=== PATIENT | female | born 1950 | race Caucasian/White ===

== ENCOUNTER 2016-12-07 12:42 | Observation (INO) ==
--- NOTE | 2016-12-07 12:57 | Emergency Department Note ---
Disposition Clinical Impression: Thrombocytopenia, Occult gastrointestinal hemorrhage, Hematuria Disposition: Admitted As Inpatient Condition: Good Referrals: NO,PCP [Primary Care Provider] - Forms: Work/School Release, ED Satisfaction Letter Time of Disposition: 17:04 Weakness HPI - General Chief complaint: ED General Medical Stated complaint: sore throat, ringing in ears, weakness, Time Seen by Provider: 12/07/16 12:50 Source: patient Mode of arrival: ambulatory Limitations: no limitations Nursing Notes Reviewed: Yes Vital Signs Reviewed: Yes - History of Present Illness HPI Narrative: 66-year-old white female who presents by squad with weakness. She has not felt well for several weeks. On November 20 she was seen at urgent care and put on amoxicillin for sore throat. She was seen in urgent care again yesterday and put on an antibiotic for a sore throat. She complained of weakness at that time. They did note that she had black stool, but she states she believes is due to her vitamins with iron. She has some ringing in her ears at times. She has some numbness on the bottoms of her feet. She has a minimal cough. No chest pain. No abdominal pain. No nausea or vomiting. She did urinate frequently last night, but no pain with urination. She does take Bumex intermittently. Pt Subjective Complaint: generalized weakness/fatigue Onset (ago): week(s) Duration: constant Location: generalized Migration: none Pain Severity: none Pain Scale: 0 Improves with: none Worsens with: none Associated symptoms: Reports: dark stools. Denies: fever/chills, nausea/ vomiting, rash, shortness of breath - Related Data Home Medications Medication Instructions Recorded Confirmed Bumetanide [Bumex] 1 mg PO DAILY 05/04/16 12/07/16 Carvedilol [Coreg] 12.5 mg PO 12/07/16 Previous Rx's Medication Instructions Recorded OxyCODONE/APAP 7.5/325 [Percocet 1 each PO Q4HR PRN #30 tablet 05/05/16 7.5/325 MG] Acetaminophen [Tylenol] 325 mg PO Q6HR PRN #10 tablet 12/06/16 Cefdinir [Omnicef] 300 mg PO BID #20 capsule 12/06/16 Allergies Allergy/AdvReac Type Severity Reaction Status Date / Time codeine Allergy Numbness Verified 12/07/16 12:45 Sulfa (Sulfonamide Allergy Hives Verified 12/07/16 12:45 Antibiotics) All systems ED: reviewed and negative except as stated. Constitutional: Denies: fever, chills Eyes: Denies: eye pain, eye discharge, vision change ENT ED: Reports: throat pain, other (Intermittent ringing in ears). Denies: ear pain, congestion Cardiovascular: Denies: chest pain, palpitations Respiratory: Reports: cough (Minimal). Denies: dyspnea, wheezes, sputum production Gastrointestinal: Denies: abdominal pain, nausea, vomiting, diarrhea Genitourinary: Reports: frequency. Denies: urgency, dysuria, hematuria Musculoskeletal: Denies: back pain Neurological: Reports: weakness, paresthesias (Monos of the). Denies: headache , numbness, vertigo Past Medical History - Past Medical History Medical history: Reports: CHF, hypertension Surgical history: Reports: appendectomy, cholecystectomy, herniorrhaphy, hysterectomy, other Psychiatric history: Reports: anxiety [employer] history: Reports: no [employer] history - Social History Smoking Status: Never smoker Smokeless Tobacco Status: No Alcohol use: Reports: occasionally Drug use: Reports: none Physical Exam - General Limitations: no limitations General appearance: alert, in no apparent distress, obese (Moderate) - Head Head exam: atraumatic, normocephalic - Eye Eye exam: Present: PERRL, EOMI. Absent: scleral icterus, conjunctival injection - ENT ENT exam: normal oropharynx, mucous membranes moist, TM's normal bilaterally - Neck Neck exam: Present: normal inspection, full ROM, trachea midline. Absent: tenderness, lymphadenopathy, thyromegaly - Chest Chest inspection: Present: normal inspection, symmetric chest wall rise - Respiratory Respiratory exam: Present: normal lung sounds bilaterally. Absent: respiratory distress, wheezes - Cardiovascular Cardiovascular exam: Present: regular rate, normal rhythm, normal heart sounds - Abdominal Exam Abdominal exam: Present: soft, Non-Tender, normal bowel sounds. Absent: organomegaly, mass - Rectal Exam Rectal exam: Present: normal inspection, normal rectal tone, hemorrhoids, other (Medium brown stool. No masses. Sent to lab for Hemoccult testing.) - Extremities Exam Extremities exam: Present: normal inspection, full ROM, normal capillary refill , other (Intact dorsalis pedis and posterior tibial pulses. There are no skin changes on the lower extremities. Sensation is intact to touch.). Absent: tenderness, calf tenderness - Back Exam Back exam: Absent: CVA tenderness (R), CVA tenderness (L) - Neurological Exam Neurological exam: Present: alert, oriented X3, CN II-XII intact. Absent: motor sensory deficit - Psychiatric Psychiatric exam: Present: normal affect, normal mood - Skin Skin exam: Present: warm, dry, intact, normal color. Absent: rash, cyanosis, diaphoresis, pallor Course - Reevaluation(s) Reevaluation #1: Workup and results discussed with the patient. Workup and results discussed with Dr. Melvin. He will admit to an observation bed for repeat labs and further workup as indicated. Time: 17:03 Vital Signs Temperature 98.9 F 12/07/16 12:48 Pulse Rate 81 12/07/16 12:48 Respiratory Rate 18 12/07/16 12:48 Blood Pressure 139/84 12/07/16 12:48 O2 Sat by Pulse Oximetry 97 12/07/16 12:48 Temperature 98.9 F 12/07/16 12:49 Pulse Rate 83 12/07/16 16:59 Respiratory Rate 18 12/07/16 16:59 Blood Pressure 116/72 12/07/16 16:59 O2 Sat by Pulse Oximetry 96 12/07/16 16:59 Oxygen Delivery Oxygen Delivery Room Air Weakness - MDM Narrative Medical decision making narrative: Differential includes but is not limited to dehydration, hypoglycemia, hyperglycemia, myocardial infarction, urinary tract action, sepsis, hypothyroidism, hyperthyroidism, hyponatremia, hypernatremia - Lab Data Lab results reviewed: Yes I reviewed the patient's lab results. Result diagrams: 12/07/16 13:12 12/07/16 13:12 Lab Results 12/07/16 12/07/16 12/07/16 Range/Units 13:12 13:12 13:12 WBC 5.3 (4.3-11.1) K/mcL RBC 3.34 L (3.82-4.97) M/mcL Hgb 11.3 L (11.5-15.4) g/dL Hct 32.8 L (35.3-44.9) % MCV 98.2 (83.0-100.0) fL MCH 33.8 H (28.0-33.3) pg MCHC 34.5 (31.6-35.5) g/dL RDW 14.7 H (11.5-14.5) % Plt Count 25 L* (140-400) K/mcL MPV 12.7 H (9.4-12.4) fL Immature Gran % 0.6 (0-4) % Seg Neutrophils % 76.0 % Lymphocytes % 10.1 % Monocytes % 12.7 % Eosinophils % 0.4 % Basophils % 0.2 % Neutrophils # 4.0 (1.6-8.9) K/mcL Lymphocytes # 0.5 L (0.6-4.6) K/mcL Monocytes # 0.7 (0.0-1.3) K/mcL Eosinophils # 0.0 (0.0-0.6) K/mcL Basophils # 0.0 (0.0-0.2) K/mcL Platelet Estimate Decreased L (Normal) Sodium 139 (136-145) mEq/L Potassium 3.5 (3.5-4.5) mEq/L Chloride 107 (98-109) mEq/L Carbon Dioxide 22 (19-29) mEq/L BUN 13 (7-20) mg/dL Creatinine 0.72 (0.57-1.11) mg/dL Est GFR ( Amer) > 60 (> 60) Est GFR (Non-Af Amer) > 60 (> 60) BUN/Creatinine Ratio 18 (6-26) Glucose 109 H (70-99) mg/dL Calculated Osmolality 289 (280-300) Calcium 7.5 L (8.6-10.8) mg/dL Total Bilirubin 0.9 (0.2-1.2) mg/dL AST 65 H (5-34) Units/L ALT 48 (0-55) Units/L Alkaline Phosphatase 232 H (38-126) Units/L Troponin I 0.00 (0-0.03) ng/mL Serum Total Protein 4.7 L (6.0-8.3) g/dL Albumin 2.0 L (3.5-5.0) g/dL Globulin 2.7 (2.4-3.5) g/dL Albumin/Globulin Ratio 0.7 L (1.1-2.2) TSH 0.609 (0.350-4.840) mcIU/mL Urine Color (Yellow) Urine Clarity (Clear) Urine pH (5.0-8.0) pH Units Ur Specific [place] (1.010-1.025) Urine Protein (Neg-Trace) mg/dL Urine Glucose (UA) (Normal) mg/dL Urine Ketones (Negative) mg/dL Urine Blood (Negative) Urine Nitrite (Negative) Urine Bilirubin (Negative) Urine Urobilinogen (Normal) mg/dL Ur Leukocyte Esterase (Negative) Urine Microscopic RBC (0-3) per hpf Urine Microscopic WBC Amorphous Sediment (Few) Ur Culture Indicated? (NO) Stool Occult Blood (Negative) 12/07/16 12/07/16 Range/Units 13:53 15:20 WBC (4.3-11.1) K/mcL RBC (3.82-4.97) M/mcL Hgb (11.5-15.4) g/dL Hct (35.3-44.9) % MCV (83.0-100.0) fL MCH (28.0-33.3) pg MCHC (31.6-35.5) g/dL RDW (11.5-14.5) % Plt Count (140-400) K/mcL MPV (9.4-12.4) fL Immature Gran % (0-4) % Seg Neutrophils % % Lymphocytes % % Monocytes % % Eosinophils % % Basophils % % Neutrophils # (1.6-8.9) K/mcL Lymphocytes # (0.6-4.6) K/mcL Monocytes # (0.0-1.3) K/mcL Eosinophils # (0.0-0.6) K/mcL Basophils # (0.0-0.2) K/mcL Platelet Estimate (Normal) Sodium (136-145) mEq/L Potassium (3.5-4.5) mEq/L Chloride (98-109) mEq/L Carbon Dioxide (19-29) mEq/L BUN (7-20) mg/dL Creatinine (0.57-1.11) mg/dL Est GFR ( Amer) (> 60) Est GFR (Non-Af Amer) (> 60) BUN/Creatinine Ratio (6-26) Glucose (70-99) mg/dL Calculated Osmolality (280-300) Calcium (8.6-10.8) mg/dL Total Bilirubin (0.2-1.2) mg/dL AST (5-34) Units/L ALT (0-55) Units/L Alkaline Phosphatase (38-126) Units/L Troponin I (0-0.03) ng/mL Serum Total Protein (6.0-8.3) g/dL Albumin (3.5-5.0) g/dL Globulin (2.4-3.5) g/dL Albumin/Globulin Ratio (1.1-2.2) TSH (0.350-4.840) mcIU/mL Urine Color Yellow (Yellow) Urine Clarity Clear (Clear) Urine pH 6.0 (5.0-8.0) pH Units Ur Specific [place] 1.010 (1.010-1.025) Urine Protein 100 H (Neg-Trace) mg/dL Urine Glucose (UA) Normal (Normal) mg/dL Urine Ketones Negative (Negative) mg/dL Urine Blood Moderate H (Negative) Urine Nitrite Negative (Negative) Urine Bilirubin Negative (Negative) Urine Urobilinogen Normal (Normal) mg/dL Ur Leukocyte Esterase Small H (Negative) Urine Microscopic RBC 5-15 H (0-3) per hpf Urine Microscopic WBC Test Not Performed Amorphous Sediment Moderate H (Few) Ur Culture Indicated? YES A (NO) Stool Occult Blood Positive A (Negative) - Radiology Data Radiology results reviewed: Yes I reviewed the patient's radiology results. ITS Impressions Chest X-Ray 12/07/16 12:53 IMPRESSION: No acute process. D/ / Drake Rowe MD / Drake Rowe MD Interpreting Provider: Drake Rowe MD Head CT 12/07/16 13:57 IMPRESSION: No acute intracranial abnormality. Age related changes including chronic small vessel ischemic disease and cerebral atrophy. D/ / 12/07/2016 14:52:13 Nikkie Delacruz MD / eareldon Interpreting Provider: Nikkie Delacruz MD - EKG Data EKG attestation: Yes I reviewed and interpreted this EKG. EKG results narrative: On his rhythm, rate of 89, left axis deviation, low QRS voltage, poor R wave progression, age undetermined anterior infarct. Nonspecific ST-T changes. Rhythm strip shows sinus rhythm with rate of 89, AL interval 183 ms, QRS 101 ms with no other ectopy as interpreted by me. This is compared to a tracing dated 05/03/16, no significant change.
[2016-12-07 13:24] LABS: Basophils % 0.2 %; Eosinophils % 0.4 %; Hematocrit 32.8 % (35.3-44.9); Hemoglobin 11.3 g/dL (11.5-15.4); Immature Granulocytes % 0.6 % (0-4); Lymphocytes # 0.5 K/mcL (0.6-4.6); Lymphocytes % 10.1 %; Mean Corpuscular HGB Conc 34.5 g/dL (31.6-35.5); Mean Corpuscular Hemoglobin 33.8 pg (28.0-33.3); Mean Corpuscular Volume 98.2 fL (83.0-100.0); Mean Platelet Volume 12.7 fL (9.4-12.4); Monocytes # 0.7 K/mcL (0.0-1.3); Monocytes % 12.7 %; Red Blood Count 3.34 M/mcL (3.82-4.97); Red Cell Distribution Width 14.7 % (11.5-14.5)
[2016-12-07 13:26] LABS: Platelet Count 25 K/mcL (140-400)
[2016-12-07 13:36] LABS: Alanine Aminotransferase 48 Units/L (0-55); Albumin/Globulin Ratio 0.7 (1.1-2.2); Alkaline Phosphatase 232 Units/L (38-126); Aspartate Amino Transferase 65 Units/L (5-34); BUN/Creatinine Ratio 18 (6-26); Bilirubin,Total 0.9 mg/dL (0.2-1.2); Blood Urea Nitrogen 13 mg/dL (7-20); Calcium 7.5 mg/dL (8.6-10.8); Carbon Dioxide 22 mEq/L (19-29); Chloride 107 mEq/L (98-109); Globulin 2.7 g/dL (2.4-3.5); Glucose 109 mg/dL (70-99); Osmolality,Calculated 289 (280-300); Potassium 3.5 mEq/L (3.5-4.5); Sodium 139 mEq/L (136-145); Total Protein 4.7 g/dL (6.0-8.3); eGFR For African Americans > 60 (> 60); eGFR For Non-African Americans > 60 (> 60)
[2016-12-07 13:42] LABS: Platelet Estimate Decreased (Normal)
[2016-12-07 13:56] LABS: Thyroid Stimulating Hormone 0.609 mcIU/mL (0.350-4.840)
[2016-12-07 15:17] LABS: Bilirubin,Urine Negative (Negative); Blood,Urine Moderate (Negative); Clarity,Urine Clear (Clear); Color,Urine Yellow (Yellow); Glucose,Urine (UA) Normal (Normal); Ketones,Urine Negative (Negative); Leukocyte Esterase,Urine Small (Negative); Nitrite,Urine Negative (Negative); Protein,Urine 100 mg/dL (Neg-Trace); Urobilinogen,Urine Normal (Normal)
[2016-12-07 15:29] LABS: Amorphous Sediment,Urine Moderate (Few)
[2016-12-07] MEDS ORDERED: Naloxone 0.4 MG/ML INJ IVP PRN (18:20)
[2016-12-07] MEDS ORDERED: Acetaminophen 325 MG TABLET PO PRN (18:20)
[2016-12-07] MEDS: *HR* OxyCODONE/APAP 7.5/325 TABLET PO PRN (21:06)
[2016-12-08] MEDS: *HR* OxyCODONE/APAP 7.5/325 TABLET PO PRN ×4 (01:38→20:25)
[2016-12-08 05:56] LABS: Basophils % 0.2 %; Eosinophils % 0.5 %; Hematocrit 30.9 % (35.3-44.9); Hemoglobin 10.7 g/dL (11.5-15.4); Immature Granulocytes % 0.5 % (0-4); Lymphocytes # 0.7 K/mcL (0.6-4.6); Lymphocytes % 15.4 %; Mean Corpuscular HGB Conc 34.6 g/dL (31.6-35.5); Mean Corpuscular Hemoglobin 34.2 pg (28.0-33.3); Mean Corpuscular Volume 98.7 fL (83.0-100.0); Mean Platelet Volume 12.5 fL (9.4-12.4); Monocytes # 0.8 K/mcL (0.0-1.3); Monocytes % 17.4 %; Neutrophils # 2.9 K/mcL (1.6-8.9); Red Blood Count 3.13 M/mcL (3.82-4.97)
[2016-12-08 06:07] LABS: Platelet Count 26 K/mcL (140-400)
[2016-12-08 06:56] LABS: Platelet Estimate Marked Decrease (Normal)
--- NOTE | 2016-12-08 11:44 | Internal Med History&Physical ---
Date of Encounter: 12/08/16 Time of Encounter: 11:00 Assessment and Plan (1) Thrombocytopenia Current visit: Yes Status: Acute Workup has been ordered. No evidence of bleeding at this time. (2) Anemia Current visit: No Status: Acute Workup has been ordered. Qualifiers: Anemia type: iron deficiency Iron deficiency anemia type: unspecified iron deficiency Qualified Code(s): D50.9 - Iron deficiency anemia, unspecified (3) Vitamin D deficiency Current visit: No Status: Acute Vitamin D level was 5 on 03/20/2016. We will recheck in a.m. (4) Weakness Current visit: No Status: Acute Will order PT and OT evaluation Internal Medicine - H&P: HPI Chief complaint: Sore throat and weakness Admitted From: Home Plans for Post Hospital Care: Home History of present illness: Ms. Lopez is a 66 year old female who came to the emergency room stating she had sore throat and weakness. She reports the sore throat has been present for approximately 10 weeks but her leg weakness has been increasing the past few days. She went to a local urgent care 11/20/2016 and was given amoxicillin. She returned to urgent care 12/06/2016 and received Cefdinir. She was evaluated in emergency room and found to have marked thrombocytopenia with platelet count 25,000. She was admitted to [facility] floor for ongoing care needs. Review of available labs show platelet count at 166 K on 03/27/2016. During hospitalization at [facility] April 2016 her platelet count was 94,000. Available lab records show no platelet count done since April 2016. She had an episode of dark stools last week but admits taking 4 iron pills at one time the previous day because she felt weak. She has not noticed melena or hematochezia. She has not noticed any unusual bleeding or petechiae etc. She has not had any change in her medications or used any unusual OTC medications recently. Her last NSAID use was an OTC Aleve approximate one week ago. She reports taking 5 pills in the proceeding week before that. She has a history of anemia with anemia testing 03/20/2016 showing iron deficiency. She denies internal malignancies. Past Med Surg Social Fam HX - Past Medical History Medical history: CHF, hypertension Psychiatric history: anxiety - Past Surgical History Surgical History: appendectomy, cholecystectomy, herniorrhaphy, hysterectomy, other - Social History Smoking Status: Never smoker Smokeless Tobacco Status: No Alcohol use: occasionally Drug use: none - Family History Mother Name: Caritone Family Member Ethnicity: Non- Living Status: Age at : 90 Hx Family Cardiac Disorders: No Hx Family Respiratory Disorders: No Hx Family Cancer: No Hx Family GI Disorders: No Hx Family Genitourinary Disorders: No Hx Family Endocrine Disorder: No Hx Family Musculoskeletal Disorders: No Hx Family Neuromuscular Disorders: No Hx Family Neurologic Disorders: No Hx Family HEENT Disorders: No Hx Family Autoimmune Disorders: No Hx Family Reproductive Disorders: No Hx Family Psychosocial Disorders: No Hx Family Medical Disorders: No Internal Medicine - H&P: Meds Bumetanide [Bumex] 1 mg PO DAILY 05/04/16 [History] OxyCODONE/APAP 7.5/325 [Percocet 7.5/325 MG] 1 each PO Q4HR PRN #30 tablet 05/05 [Rx] Acetaminophen [Tylenol] 325 mg PO Q6HR PRN #10 tablet 12/06/16 [Rx] Cefdinir [Omnicef] 300 mg PO BID #20 capsule 12/06/16 [Rx] Carvedilol [Coreg] 12.5 mg PO 12/07/16 [History] Allergies codeine Allergy (Verified 12/07/16 12:45) Numbness Sulfa (Sulfonamide Antibiotics) Allergy (Verified 12/07/16 12:45) Hives All Systems PM: A 10-system review of systems was performed and is negative for pertinent findings except as documented above in the HPI. Review of systems: Gen.: Her weight has been stable since the February 2016 [facility] hospitalization Cardiovascular: She has a history of hypertension. She claims she had an [facility] in the past but was unaware of the time it happened. She was told about it later based on EKG findings. She has a diagnosis of CHF but does not recall results of the most recent echo of 2009. She claims she had a heart cath 2009 at [facility] which was unremarkable. She has had ablation procedure for atrial fibrillation. She denies DVT or pulmonary embolus. Respiratory: She smoked from age [age] up to 1 pack per day. She denies known chronic lung disease and has not been tested for sleep apnea GI: She has had cholecystectomy. She has GERD. She had gastric bypass surgery 30 years ago for morbid obesity. She was diagnosed Crohn's disease approximately 25 years ago. Her last colonoscopy was approximately 2012 and she reports was unremarkable. She states she has chronic diarrhea. Denies disorders of her liver or exocrine pancreas. : She has occasional hematuria but denies other kidney or bladder disorders Neurologic: She denies large distribution strokes or seizures Endocrine: She denies diabetes thyroid disease or hyperlipidemia Hematology/oncology: As per history of present illness Psychiatric: She has anxiety and depression denies other mental health issues Musk skeletal: She has DJD but no known gout or osteoporosis. - Constitutional Vitals: Temp Pulse Resp BP Pulse Ox 98.9 F 84 16 120/69 96 12/08/16 10:49 12/08/16 10:49 12/08/16 10:49 12/08/16 10:49 12/08/16 10:49 Exam: Gen.: She is a well developed well-nourished female who appears in no severe distress at present time HEENT: Head is atraumatic and normocephalic. Eyes: EOMI. There is no scleral icterus. Mouth: Mucosa is moist. Neck: Supple and nontender. There is no thyromegaly or adenopathy noted. Heart: Regular without murmurs gallops or ectopics. Lungs: No wheezes or crackles are heard. Abdomen: Soft and nontender. No masses or guarding are noted. Extremities: There is no cyanosis edema or clubbing noted. Dorsalis pedis and posttibial pulses are 1-2 over 2 bilaterally. Neurologic: Mental status: She is talkative and a good historian. Cranial nerves: Smile is symmetric. Forehead wrinkles bilaterally. Tongue protrudes midline. EOMI. Motor: There is no pronator drift. Cerebellar: Finger to nose is intact bilaterally. Skin: Warm and dry. No unusual bruising or petechiae are seen. Internal Med - H&P Results - Labs CBC & Chem 7: 12/08/16 05:25 12/07/16 13:12 Labs: Short CBC 12/08/16 Range/Units 05:25 WBC 4.4 (4.3-11.1) K/mcL Hgb 10.7 L (11.5-15.4) g/dL Hct 30.9 L (35.3-44.9) % Plt Count 26 L* (140-400) K/mcL Neutrophils # 2.9 (1.6-8.9) K/mcL - VTE Reasons for not Prescribing Prophylaxis: Medical contraindication
[2016-12-09] MEDS: *HR* OxyCODONE/APAP 7.5/325 TABLET PO PRN ×5 (02:00→22:42)
[2016-12-09 06:45] LABS: Basophils % 0.3 %; Hematocrit 29.3 % (35.3-44.9); Hemoglobin 9.8 g/dL (11.5-15.4); Immature Granulocytes % 0.7 % (0-4); Lymphocytes # 0.8 K/mcL (0.6-4.6); Lymphocytes % 25.8 %; Mean Corpuscular HGB Conc 33.4 g/dL (31.6-35.5); Mean Corpuscular Hemoglobin 33.8 pg (28.0-33.3); Mean Platelet Volume 13.7 fL (9.4-12.4); Monocytes # 0.7 K/mcL (0.0-1.3); Monocytes % 23.1 %; Neutrophils # 1.5 K/mcL (1.6-8.9); Nucleated Red Blood Cells 0.7 /100 WBC (0); Red Cell Distribution Width 15.3 % (11.5-14.5); Segmented Neutrophils % 49.1 %
[2016-12-09 06:59] LABS: Platelet Count 30 K/mcL (140-400)
--- NOTE | 2016-12-09 09:05 | Electrocardiograph Report ---
[address] [address] Test Date: 2016-12-07 Pat Name: Ana Lopez Department: [id number] Room: [facility] Gender: F Display Decorator: [id number] : 1950 Requested By: Macario Carrera Order Number: [id number] Reading MD: Tr Powers MD Measurements Intervals [place] Rate: 89 P: 70 [place]: 183 QRS: -53 QRSD: 101 T: 3 QT: 374 QTc: 421 Interpretive Statements SINUS RHYTHM MARKED LEFT AXIS DEVIATION LOW QRS VOLTAGE IN PRECORDIAL LEADS Poor R wave progression Electronically Signed On 12-09-2016 9:04:21 EDT by Tr Powers MD
[2016-12-09 09:49] LABS: % Iron Saturation 28 % (15-50); Iron 39 mcg/dL (50-170); Transferrin 99 mg/dL (180-382)
[2016-12-09 10:26] LABS: Ferritin 205 ng/ml (5-204)
[2016-12-09 10:39] LABS: Platelet Estimate Marked Decrease (Normal)
[2016-12-09 10:44] LABS: Folate 13.7 ng/mL (7.0-31.4)
--- NOTE | 2016-12-09 15:35 | Internal Med Progress Note ---
Date of Encounter: 12/09/16 Time of Encounter: 15:25 - Assessment and plan (1) Thrombocytopenia Current Visit: Yes Status: Acute Assessment and plan: December 08. Slightly improved. Workup has been initiated. We will recheck labs in a.m. (2) Anemia Current Visit: No Status: Acute Assessment and plan: December 08. Hemoglobin has decreased to 9.8 today. Anemia testing showed B12 deficiency. We will give IM B12 injection. Recheck labs in a.m. Qualifiers: Anemia type: iron deficiency Iron deficiency anemia type: unspecified iron deficiency Qualified Code(s): D50.9 - Iron deficiency anemia, unspecified (3) Vitamin D deficiency Current Visit: No Status: Acute Assessment and plan: December 08. Vitamin D level significantly low at 4. We will give supplemental vitamin D (4) Weakness Current Visit: No Status: Acute Assessment and plan: December 08. Continue PT and OT. Anticipate discharge home tomorrow. (5) Leukopenia Current Visit: Yes Status: Acute Assessment and plan: December 08. WBC has decreased to 3.0. There is no left shift at this time. We will recheck in a.m. Qualifiers: Leukopenia type: unspecified Qualified Code(s): D72.819 - Decreased white blood cell count, unspecified - Subjective Interval history: December 09. She has no new complaints and states she feels slightly better but not back to her baseline. She does not feel stable for discharge home. - Constitutional Vitals: Temp Pulse Resp BP Pulse Ox 98.6 F 78 18 153/88 97 12/09/16 10:51 12/09/16 15:14 12/09/16 15:14 12/09/16 15:14 12/09/16 15:14 Exam: She is sitting in a chair at bedside and appears to be resting comfortably. Her affect is bright and cheerful. I reviewed her medications and lab results. Internal Medicine: Result - Labs CBC & Chem 7: 12/09/16 05:45 12/07/16 13:12 Labs: Short CBC 12/09/16 Range/Units 05:45 WBC 3.0 L (4.3-11.1) K/mcL Hgb 9.8 L (11.5-15.4) g/dL Hct 29.3 L (35.3-44.9) % Plt Count 30 L* (140-400) K/mcL Neutrophils # 1.5 L (1.6-8.9) K/mcL - VTE Reasons for not Prescribing Prophylaxis: Medical contraindication Consult Discharge Plan - Plan Referrals: NO,PCP [Primary Care Provider] - 1 week
[2016-12-09] MEDS ORDERED: Cyanocobalamin (B-12) 1,000 MCG/ML VIAL IM ONE (15:40)
[2016-12-09] MEDS ORDERED: Cholecalciferol (D-3) 1,000 UNIT TABLET PO ONE ×2 (16:30→18:30)
[2016-12-10] MEDS: *HR* OxyCODONE/APAP 7.5/325 TABLET PO PRN ×2 (02:33→06:46)
[2016-12-10 06:01] LABS: Basophils % 0.6 %; Eosinophils % 1.2 %; Hematocrit 30.4 % (35.3-44.9); Immature Granulocytes % 0.6 % (0-4); Lymphocytes # 1.2 K/mcL (0.6-4.6); Lymphocytes % 35.9 %; Mean Corpuscular HGB Conc 32.9 g/dL (31.6-35.5); Mean Corpuscular Hemoglobin 33.4 pg (28.0-33.3); Mean Corpuscular Volume 101.7 fL (83.0-100.0); Mean Platelet Volume 11.7 fL (9.4-12.4); Monocytes # 0.8 K/mcL (0.0-1.3); Monocytes % 23.5 %; Neutrophils # 1.2 K/mcL (1.6-8.9); Red Blood Count 2.99 M/mcL (3.82-4.97); Segmented Neutrophils % 38.2 %
[2016-12-10 06:04] LABS: Platelet Count 46 K/mcL (140-400)
[2016-12-10 06:13] VITALS: BP 130/83
[2016-12-10 06:22] LABS: Alanine Aminotransferase 30 Units/L (0-55); Albumin/Globulin Ratio 0.8 (1.1-2.2); Alkaline Phosphatase 165 Units/L (38-126); Aspartate Amino Transferase 22 Units/L (5-34); BUN/Creatinine Ratio 15 (6-26); Bilirubin,Total 0.4 mg/dL (0.2-1.2); Blood Urea Nitrogen 10 mg/dL (7-20); Calcium 7.2 mg/dL (8.6-10.8); Carbon Dioxide 23 mEq/L (19-29); Chloride 112 mEq/L (98-109); Globulin 2.4 g/dL (2.4-3.5); Glucose 90 mg/dL (70-99); Magnesium 1.9 mg/dL (1.6-2.6); Osmolality,Calculated 293 (280-300); Potassium 3.6 mEq/L (3.5-4.5); Sodium 142 mEq/L (136-145); Total Protein 4.3 g/dL (6.0-8.3); eGFR For African Americans > 60 (> 60); eGFR For Non-African Americans > 60 (> 60)
[2016-12-10 06:23] LABS: Albumin 1.9 g/dL (3.5-5.0)
[2016-12-10 06:55] LABS: Platelet Estimate Marked Decrease (Normal)
[2016-12-10 06:59] LABS: Hypochromasia Present (Not Present)
[2016-12-10 07:00] LABS: Anisocytosis 1+ (Not Present); Macrocytosis Present (Not Present)
--- NOTE | 2016-12-10 09:29 | Discharge Summary ---
Date of Encounter: 12/10/16 Time of Encounter: 09:10 - Discharge Diagnosis (1) Thrombocytopenia Priority: Primary Status: Acute (2) Anemia Priority: Secondary Status: Acute Qualifiers: Anemia type: iron deficiency Iron deficiency anemia type: unspecified iron deficiency Qualified Code(s): D50.9 - Iron deficiency anemia, unspecified (3) Vitamin D deficiency Priority: Secondary Status: Acute (4) Weakness Priority: Secondary Status: Acute (5) Leukopenia Priority: Secondary Status: Acute Qualifiers: Leukopenia type: unspecified Qualified Code(s): D72.819 - Decreased white blood cell count, unspecified - Discharge Medications Prescriptions: Alprazolam [Xanax 0.25 MG Tablet] 0.25 mg PO TID PRN #12 tablet PRN Reason: Anxiety Carvedilol 12.5 mg PO BID #60 tab Cholecalciferol (D-3) [Vitamin D] 5,000 unit PO DAILY #150 tablet Cyanocobalamin (B-12) [Vitamin B12] 1,000 mcg PO DAILY #30 tablet Tramadol HCl [Ultram] 50 mg PO QID PRN #20 tab PRN Reason: Pain TraZODone 100 mg PO HS PRN #30 tablet PRN Reason: Insomnia Home Medications: Acetaminophen [Tylenol] 325 mg PO Q6HR PRN #10 tablet 12/06/16 [Rx] Alprazolam [Xanax 0.25 MG Tablet] 0.25 mg PO TID PRN #12 tablet 12/10/16 [Rx] Carvedilol 12.5 mg PO BID #60 tab 12/10/16 [Rx] Cholecalciferol (D-3) [Vitamin D] 5,000 unit PO DAILY #150 tablet 12/10/16 [Rx] Cyanocobalamin (B-12) [Vitamin B12] 1,000 mcg PO DAILY #30 tablet 12/10/16 [Rx] TraZODone 100 mg PO HS PRN #30 tablet 12/10/16 [Rx] Tramadol HCl [Ultram] 50 mg PO QID PRN #20 tab 12/10/16 [Rx] Allergies/Adverse Reactions: Allergies codeine Allergy (Verified 12/07/16 12:45) Numbness Sulfa (Sulfonamide Antibiotics) Allergy (Verified 12/07/16 12:45) Hives Date of admission: 12/07/16 18:17 Primary care physician: PCP NO Consults: 12/08/16 12:02 Consult to Occupational Therapy [CONS] Routine Comment: Evaluate, develop and implement POC Consult to Physical Therapy [CONS] Routine Comment: Evaluate, develop and implement POC 12/08/16 20:35 Consult to Security Controls Assessor [CONS] Routine Reason for SW Consult: Discharge planning - Patient Status Disposition: Home Health Service Condition: Good Overall status at discharge: patient is progressing back to baseline - Discharge Instructions Follow Up With: NO,PCP [Primary Care Provider] - 1 week - Diet and Activity Activity: resume usual activities as tolerated Diet: advance to your usual diet Hospital course: Ms. Lopez is a 66 year old female who came to the emergency room stating she had sore throat and weakness. She reports the sore throat has been present for approximately 10 weeks but her leg weakness has been increasing the past few days. She went to a local urgent care 11/20/2016 and was given amoxicillin. She returned to urgent care 12/06/2016 and received Cefdinir. She was evaluated in emergency room and found to have marked thrombocytopenia with platelet count 25,000. She was admitted to [facility] for ongoing care needs. Initial orders were written by the emergency room physician. I saw her on December 08 and performed a history and physical. Workup for thrombocytopenia was ordered occluding MARTINEZ, antiphospholipid antibodies, CMV titers, EBV titers, platelet associated antibody, and hepatitis B and C screening. Most of these results are pending at time of discharge. Medications were adjusted and platelet count improved to 46,000 by the day of discharge. She initially had progressive leukopenia but WBC stabilized at 3.2 K on the day of discharge. Hemoglobin was stable at 10.0. Anemia testing showed B12 level 212, folate 13.7, iron 39, transferrin saturation 20%, and ferritin 205. She was started on supplemental B12 orally after a single 1000 g IM injection. She will continue supplemental oral B12 at discharge. Vitamin D level returned significantly decreased at 4. She will will be given 5000 international units vitamin D daily at discharge. She experienced significant anxiety as she discussed her home situation with her 's care needs etc. She will be given a small quantity of Xanax at discharge for prn use for anxiety. She complained of diffuse pain and will be given 20 tramadol pills for prn use. Her pain may lessen as her vitamin D level improves. On December 10 she was stable for discharge home. She will follow with a PCP in the [facility] in [place] within 1 week. - Time Spent with Patient Total time spent providing and/or coordinating discharge services: - Constitutional Vitals: Temp Pulse Resp BP Pulse Ox 98.5 F 76 18 130/83 98 12/10/16 06:12 12/10/16 06:12 12/10/16 06:12 12/10/16 06:12 12/10/16 06:12 - VTE Reasons for not Prescribing Prophylaxis: Medical contraindication
--- NOTE | 2016-12-10 09:38 | Physician Discharge Referral ---
Home Health/Hosp Referral Info Transfer to: Home Health Attending Provider: Olegario Provider in Charge Post Discharge: PCP - Diagnosis (1) Thrombocytopenia Priority: Primary Status: Acute (2) Anemia Priority: Secondary Status: Acute (3) Vitamin D deficiency Priority: Secondary Status: Acute (4) Weakness Priority: Secondary Status: Acute (5) Leukopenia Priority: Secondary Status: Acute - Respiratory Orders Smoking Cessation: Smoking cessation has been advised. For more information, call the [place] Tobacco Quit Line at 0-089-IKSJ-NOW. - Diet/Nutrition Diet/Nutrition Orders: Regular - Activity Activity Orders: Ambulate - Services Needed Following services are medically necessary services: Nursing, Home Health Aide, Physical Therapy, Occupational Therapy - Transfer Medications Prescriptions: Alprazolam [Xanax 0.25 MG Tablet] 0.25 mg PO TID PRN #12 tablet PRN Reason: Anxiety Carvedilol 12.5 mg PO BID #60 tab Cholecalciferol (D-3) [Vitamin D] 5,000 unit PO DAILY #150 tablet Cyanocobalamin (B-12) [Vitamin B12] 1,000 mcg PO DAILY #30 tablet Tramadol HCl [Ultram] 50 mg PO QID PRN #20 tab PRN Reason: Pain TraZODone 100 mg PO HS PRN #30 tablet PRN Reason: Insomnia Home Medications: Acetaminophen [Tylenol] 325 mg PO Q6HR PRN #10 tablet 12/06/16 [Rx] Alprazolam [Xanax 0.25 MG Tablet] 0.25 mg PO TID PRN #12 tablet 12/10/16 [Rx] Carvedilol 12.5 mg PO BID #60 tab 12/10/16 [Rx] Cholecalciferol (D-3) [Vitamin D] 5,000 unit PO DAILY #150 tablet 12/10/16 [Rx] Cyanocobalamin (B-12) [Vitamin B12] 1,000 mcg PO DAILY #30 tablet 12/10/16 [Rx] TraZODone 100 mg PO HS PRN #30 tablet 12/10/16 [Rx] Tramadol HCl [Ultram] 50 mg PO QID PRN #20 tab 12/10/16 [Rx] Allergies/Adverse Reactions: Allergies codeine Allergy (Verified 12/07/16 12:45) Numbness Sulfa (Sulfonamide Antibiotics) Allergy (Verified 12/07/16 12:45) Hives Certification: Further, I certify that my clinical findings support that this patient is homebound (i.e. absences from home require considerable and taxing effort and are for medical reasons or judaism services or infrequently or short duration when for other reasons) because: Homebound Reason: Patient requires assistance of a person or device to safely leave home (Exercise supervision in the home, medication oversight) Attestation: My signature below is to certify that this patient is under my care and that I, or nurse practitioner, or a physician's legislative assistant working with me, has a face-to -face encounter with this patient.
[2016-12-11 07:59] LABS: ANA IgG by ELISA NONE DETECTED (None Detected)
[2016-12-11 10:01] LABS: APTT (LE Anticoag) 43 sec (32-48); Diluted Russell Viper Venom 38 sec (33-44); PT (LE-Anticoag) 12.6 sec (12.0-15.5)
[2016-12-11 19:46] LABS: EBV Quant Copy/mL <390 cpy/mL; Epstein Barr Virus Qnt Source PLASMA
[2016-12-12 07:18] LABS: Cytomegalovirus DNA (PCR) NOT DETECTED
[2016-12-12 07:19] LABS: EBV Quant Interpretation NOT DETECTED (Not Detected); EBV Quant Log <2.6 log
== END 2016-12-10 12:30 | disposition home health service (06) ==
LOC: INPPIK 12:42 → EMEROOPIK 12:42 → INPPIK 18:25
PROVIDERS: ADMIT Internal Medicine; ATTEND Internal Medicine

== ENCOUNTER 2017-01-06 14:08 | Observation (INO) ==
--- NOTE | 2017-01-06 14:19 | Emergency Department Note ---
Disposition Clinical Impression: Gastroenteritis, Weakness, Dehydration Disposition: Transfer Short-Term Hosp Condition: Good Referrals: NO,PCP [Primary Care Provider] - Forms: ED Satisfaction Letter General Adult HPI - General Chief complaint: ED Shortness of Breath/Dyspnea Stated complaint: Nausea, vomitng, sob Time Seen by Provider: 01/06/17 14:15 Source: patient, EMS Mode of arrival: EMS Limitations: no limitations Nursing Notes Reviewed: Yes Vital Signs Reviewed: Yes - History of Present Illness HPI Narrative: Patient reports intractable nausea and vomiting over the last 24 hours. She states that she has thrown up about 30 times to where she is just bringing up foam. She denies any blood or bile in her emesis. She states this threw her into a panic attack prior to arrival prompting her to call the squad. In route she has received some Zofran and states her nausea is quite a bit better. She has relates a feeling of abdominal pain like she is going to have some diarrhea but her bowels have been normal for her. She states she frequently will have loose stool ever since she had bariatric surgery years ago. She reports some chills but no fevers. She denies chest pain or cough but has had some shortness of breath. She has had almost no oral intake for 24 hours and states she is getting weak and dizzy with standing. She denies any concern of foodborne illness or any definite ill exposures. She states she has been around a lot of hospitals though recently with family members. She herself advises that she had a urinary tract infection for which she has completed a recent course of antibiotics. Onset (ago): day(s) (1) Consistency: constant Improves with: nothing Worsens with: eating Associated symptoms: Reports: fever/chills, loss of appetite, malaise, nausea/ vomiting, shortness of breath, weakness. Denies: confusion, chest pain, cough, diaphoresis, headaches, rash, seizure, syncope Treatments Prior to Arrival: other (IV fluids, Zofran) - Related Data Previous Rx's Medication Instructions Recorded Acetaminophen [Tylenol] 325 mg PO Q6HR PRN #10 tablet 12/06/16 ALPRAZolam [Xanax 0.25 MG Tablet] 0.25 mg PO TID PRN #12 tablet 12/10/16 Carvedilol 12.5 mg PO BID #60 tab 12/10/16 Cholecalciferol (D-3) [Vitamin D] 5,000 unit PO DAILY #150 tablet 12/10/16 Cyanocobalamin (B-12) [Vitamin B12] 1,000 mcg PO DAILY #30 tablet 12/10/16 Tramadol HCl [Ultram] 50 mg PO QID PRN #20 tab 12/10/16 traZODone [TraZODone] 100 mg PO HS PRN #30 tablet 12/10/16 Ondansetron HCl [Zofran] 4 mg PO Q6HR PRN #8 tablet 12/26/16 Allergies Allergy/AdvReac Type Severity Reaction Status Date / Time codeine Allergy Numbness Verified 12/07/16 12:45 Sulfa (Sulfonamide Allergy Hives Verified 12/07/16 12:45 Antibiotics) All systems ED: reviewed and negative except as stated. Past Medical History - Past Medical History Attestation: Yes The following information was validated with the patient. 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 Absent: scleral icterus, conjunctival injection - ENT ENT exam: normal exam, normal oropharynx, mucous membranes moist - Neck Neck exam: Present: normal inspection, full ROM, trachea midline - Chest Chest inspection: Present: normal inspection, symmetric chest wall rise. Absent : tenderness - Respiratory Respiratory exam: Present: normal lung sounds bilaterally. Absent: respiratory distress, wheezes, prolonged expiratory phase - Cardiovascular Cardiovascular exam: Present: regular rate, normal rhythm, normal heart sounds. Absent: tachycardia - Abdominal Exam Abdominal exam: Present: soft, Non-Tender, normal bowel sounds. Absent: tenderness, distention, guarding, rebound, rigidity - Extremities Exam Extremities exam: Present: normal inspection, full ROM, normal capillary refill. Absent: tenderness, pedal edema, calf tenderness - Expanded Lower Extremity Exam Neurovascular/Tendon exam: Present: normal capillary refill. Absent: motor deficit, sensory deficit, tendon deficit Gait: not tested/not observed - Back Exam Back exam: Present: normal inspection, full ROM. Absent: tenderness, vertebral tenderness - Neurological Exam Neurological exam: Present: alert, oriented X3 - Psychiatric Psychiatric exam: Present: normal affect, anxious - Skin Skin exam: Present: warm, dry, intact, normal color. Absent: cyanosis, diaphoresis, pallor Course Course Narrative: 1520: With return of all lab tests, patient is continuing with nausea without vomiting. She has had diarrhea now while she has been in the department. This is without blood or mucus. I feel it will be prudent to have her observation and continued hydration. This will be discussed with Dr. Melvin for potential observation. 1525: Dr. Melvin is agreeable with continuation of IV fluids with inpatient observation. Vital Signs Temperature 98.6 F 01/06/17 14:14 Respiratory Rate 20 01/06/17 14:14 Blood Pressure 137/71 01/06/17 14:14 O2 Sat by Pulse Oximetry 98 01/06/17 14:14 Temperature 98.6 F 01/06/17 14:14 Respiratory Rate 20 01/06/17 14:14 Blood Pressure 137/71 01/06/17 14:14 O2 Sat by Pulse Oximetry 98 01/06/17 14:14 Oxygen Delivery Oxygen Delivery Room Air Medical Decision Making - Medical Records Medical records reviewed: Yes I reviewed the patient's medical records. - Lab Data Lab results reviewed: Yes I reviewed the patient's lab results. Result diagrams: 01/06/17 14:27 01/06/17 14:27 Lab Results 01/06/17 01/06/17 Range/Units 14:27 14:27 WBC 4.3 (4.3-11.1) K/mcL RBC 3.52 L (3.82-4.97) M/mcL Hgb 12.1 (11.5-15.4) g/dL Hct 35.3 (35.3-44.9) % MCV 100.3 H (83.0-100.0) fL MCH 34.4 H (28.0-33.3) pg MCHC 34.3 (31.6-35.5) g/dL RDW 12.7 (11.5-14.5) % Plt Count 152 (140-400) K/mcL MPV 10.4 (9.4-12.4) fL Immature Gran % 0.2 (0-4) % Seg Neutrophils % 62.5 % Lymphocytes % 27.6 % Monocytes % 9.0 % Eosinophils % 0.2 % Basophils % 0.5 % Neutrophils # 2.7 (1.6-8.9) K/mcL Lymphocytes # 1.2 (0.6-4.6) K/mcL Monocytes # 0.4 (0.0-1.3) K/mcL Eosinophils # 0.0 (0.0-0.6) K/mcL Basophils # 0.0 (0.0-0.2) K/mcL Sodium 140 (136-145) mEq/L Potassium 3.5 (3.5-4.5) mEq/L Chloride 104 (98-109) mEq/L Carbon Dioxide 21 (19-29) mEq/L BUN 15 (7-20) mg/dL Creatinine 0.66 (0.57-1.11) mg/dL Est GFR ( Amer) > 60 (> 60) Est GFR (Non-Af Amer) > 60 (> 60) BUN/Creatinine Ratio 23 (6-26) Glucose 111 H (70-99) mg/dL Calculated Osmolality 292 (280-300) Calcium 7.9 L (8.6-10.8) mg/dL Total Bilirubin 1.0 (0.2-1.2) mg/dL Direct Bilirubin 0.5 (0.0-0.5) mg/dL Indirect Bilirubin 0.5 (0.0-1.2) mg/dL AST 37 H (5-34) Units/L ALT 23 (0-55) Units/L Alkaline Phosphatase 154 H (38-126) Units/L Serum Total Protein 5.0 L (6.0-8.3) g/dL Albumin 2.5 L (3.5-5.0) g/dL Globulin 2.5 (2.4-3.5) g/dL Albumin/Globulin Ratio 1.0 L (1.1-2.2) Amylase 11 L (25-125) Units/L Lipase 17 (8-78) Units/L - EKG Data EKG #1 EKG attestation: Yes I reviewed and interpreted this EKG. EKG shows normal: sinus rhythm, intervals, QRS complexes, ST-T waves Rhythm: PVC's [place]/QRS: left axis deviation QRS morphology: poor R-wave progression Interpretation: no acute changes
[2017-01-06] MEDS ORDERED: 0.9 % Sodium Chloride 1,000 ML IVC SCH ×2 (14:30→16:26)
[2017-01-06 14:33] LABS: Basophils % 0.5 %; Eosinophils % 0.2 %; Hematocrit 35.3 % (35.3-44.9); Hemoglobin 12.1 g/dL (11.5-15.4); Immature Granulocytes % 0.2 % (0-4); Lymphocytes # 1.2 K/mcL (0.6-4.6); Lymphocytes % 27.6 %; Mean Corpuscular HGB Conc 34.3 g/dL (31.6-35.5); Mean Corpuscular Hemoglobin 34.4 pg (28.0-33.3); Mean Corpuscular Volume 100.3 fL (83.0-100.0); Mean Platelet Volume 10.4 fL (9.4-12.4); Monocytes # 0.4 K/mcL (0.0-1.3); Neutrophils # 2.7 K/mcL (1.6-8.9); Platelet Count 152 K/mcL (140-400); Red Blood Count 3.52 M/mcL (3.82-4.97); Red Cell Distribution Width 12.7 % (11.5-14.5); Segmented Neutrophils % 62.5 %
[2017-01-06 14:52] LABS: Alanine Aminotransferase 23 Units/L (0-55); Albumin 2.5 g/dL (3.5-5.0); Alkaline Phosphatase 154 Units/L (38-126); Amylase 11 Units/L (25-125); Aspartate Amino Transferase 37 Units/L (5-34); BUN/Creatinine Ratio 23 (6-26); Bilirubin,Direct 0.5 mg/dL (0.0-0.5); Bilirubin,Indirect 0.5 mg/dL (0.0-1.2); Blood Urea Nitrogen 15 mg/dL (7-20); Calcium 7.9 mg/dL (8.6-10.8); Carbon Dioxide 21 mEq/L (19-29); Chloride 104 mEq/L (98-109); Globulin 2.5 g/dL (2.4-3.5); Glucose 111 mg/dL (70-99); Lipase 17 Units/L (8-78); Osmolality,Calculated 292 (280-300); Potassium 3.5 mEq/L (3.5-4.5); Sodium 140 mEq/L (136-145); eGFR For African Americans > 60 (> 60); eGFR For Non-African Americans > 60 (> 60)
[2017-01-06] MEDS ORDERED: *HR* LORazepam 2 MG/ML VIAL IVP ONE (15:38)
--- NOTE | 2017-01-06 15:53 | Electrocardiograph Report ---
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
[2017-01-06] MEDS ORDERED: Naloxone 0.4 MG/ML INJ IVP PRN ×2 (16:26→17:42)
[2017-01-06] MEDS ORDERED: Ondansetron 4 MG/2 ML VIAL IVP PRN ×2 (16:26→17:42)
[2017-01-06] MEDS: 0.9 % Sodium Chloride 1,000 ML IVC SCH (18:26)
[2017-01-06] MEDS: *HR* OxyCODONE/APAP 5/325 TABLET PO PRN (21:24)
[2017-01-06] MEDS: *HR* LORazepam 1 MG TABLET PO PRN (23:47)
[2017-01-07] MEDS: 0.9 % Sodium Chloride 1,000 ML IVC SCH ×2 (06:03→09:17)
[2017-01-07] MEDS: *HR* OxyCODONE/APAP 5/325 TABLET PO PRN ×3 (06:03→19:19)
[2017-01-07] MEDS: *HR* LORazepam 1 MG TABLET PO PRN ×3 (09:14→23:07)
--- NOTE | 2017-01-07 10:56 | Internal Med History&Physical ---
Date of Encounter: 01/07/17 Time of Encounter: 10:20 Assessment and Plan (1) Gastroenteritis Current visit: Yes Status: Acute She was ordered IV fluids and prn anti-medics through emergency room. Advance diet as tolerated. (2) Vitamin D deficiency Current visit: No Status: Acute Continue supplemental vitamin D. (3) Anxiety Current visit: Yes Status: Acute Will continue Ativan prn as ordered through the emergency room. Internal Medicine - H&P: HPI Chief complaint: Vomiting Admitted From: Home Plans for Post Hospital Care: Home History of present illness: Ms. Lopez is a 66 year old female who came to emergency room stating she had onset of vomiting January 05. She reports over 20 episodes of vomiting without visible hematemesis. She developed lower abdominal pain the morning of January 06 which she attributes to the repeated vomiting. She also reports feeling chilled and having diarrhea. She reports she had a panic attack the morning of January 06. She came to emergency room and was admitted to [facility] floor for ongoing care needs. She states she feels improved at the present time and has not vomited for several hours. Her GI history is pertinent for cholecystectomy and GERD. She had GBS approximately 30 years ago for morbid obesity. She reports being diagnosed with Crohn's disease approximately 25 years ago. Her last colonoscopy was approximately 2012 which she states was unremarkable. She states she has chronic diarrhea. She denies disorders of her liver or exocrine pancreas. She was hospitalized at [facility] 1 month ago with diagnosis of anemia and thrombocytopenia. She states she did not fill all her prescriptions given at discharge and has not followed up with a PCP locally or at her previous physicians at [facility] since discharge. She states frequently she does not have money to buy her prescriptions. Past Med Surg Social Fam HX - Past Medical History Medical history: CHF, hypertension Psychiatric history: anxiety - Past Surgical History Surgical History: cholecystectomy, hysterectomy, bariatric surgery - Social History Smoking Status: Former smoker Smokeless Tobacco Status: No Alcohol use: occasionally Drug use: none - Family History Mother Family Member Ethnicity: Non- Living Status: Hx Family Cardiac Disorders: No Hx Family Respiratory Disorders: No Hx Family Cancer: No Hx Family GI Disorders: No Hx Family Endocrine Disorder: No Hx Family Neuromuscular Disorders: No Hx Family Neurologic Disorders: No Hx Family HEENT Disorders: No Hx Family Autoimmune Disorders: No Internal Medicine - H&P: Meds Acetaminophen [Tylenol] 325 mg PO Q6HR PRN #10 tablet 12/06/16 [Rx] ALPRAZolam [Xanax 0.25 MG Tablet] 0.25 mg PO TID PRN #12 tablet 12/10/16 [Rx] Carvedilol 12.5 mg PO BID #60 tab 12/10/16 [Rx] Cholecalciferol (D-3) [Vitamin D] 5,000 unit PO DAILY #150 tablet 12/10/16 [Rx] Cyanocobalamin (B-12) [Vitamin B12] 1,000 mcg PO DAILY #30 tablet 12/10/16 [Rx] Allergies codeine Allergy (Verified 12/07/16 12:45) Numbness Sulfa (Sulfonamide Antibiotics) Allergy (Verified 12/07/16 12:45) Hives All Systems PM: A 10-system review of systems was performed and is negative for pertinent findings except as documented above in the HPI. Review of systems: Gen.: Her weight has been stable since the February 2016 [facility] hospitalization at approximately 88 kg Cardiovascular: She has a history of hypertension. She claims she had an PA in the past but was unaware of the time it happened. She was told about it later based on EKG findings. She claims a diagnosis of CHF. The most recent echocardiogram 03/19/2016 showed LVEF of 65% with moderate diastolic dysfunction seen. There was no significant valvular abnormalities noted. She had an ascending aortic dilatation measuring 4.1 cm. She claims she had a heart cath 2010 at [facility] which was unremarkable. She has had ablation procedure for atrial fibrillation. She denies DVT or pulmonary embolus. Respiratory: She smoked from age [age] up to 1 pack per day. She denies known chronic lung disease and has not been tested for sleep apnea GI: As per history of present illness : She has occasional hematuria but denies other kidney or bladder disorders Neurologic: She denies large distribution strokes or seizures Endocrine: She denies diabetes thyroid disease or hyperlipidemia Hematology/oncology: At her hospitalization 12/08/2016 at [facility] she was found to have pancytopenia. This has corrected. She denies internal malignancies. Psychiatric: She has anxiety and depression denies other mental health issues Musk skeletal: She has DJD but no known gout or osteoporosis. She had very low vitamin D level found at last hospitalization and was placed on vitamin D supplementation. - Constitutional Vitals: Temp Pulse Resp BP Pulse Ox 98.8 F 81 16 139/81 98 01/07/17 06:33 01/07/17 06:33 01/07/17 06:33 01/07/17 06:33 01/07/17 06:33 Exam: Gen.: She is a well-developed and nourished female who appears in no severe distress at present time HEENT: Head is atraumatic and normocephalic. Eyes: EOMI. There is no scleral icterus. Mouth: Mucosa is moist. Neck: Supple and nontender. There is no thyromegaly or adenopathy noted. Heart: Regular without murmurs gallops or ectopics. Lungs: No wheezes or crackles are heard. Abdomen: Soft and nontender. No masses or guarding are noted. Extremities: There is no cyanosis edema or clubbing noted. Dorsalis pedis and posterior tibial pulses are trace palpable bilaterally. She has an ecchymosis measuring approximately 10 cm maximum diameter in her left lower anterior buck area. She has a shallow ulcer on the right lateral lower leg measuring 10-12 mm. Neurologic: Mental status: She is talkative and a good historian. Cranial nerves: Smile is symmetric. Forehead wrinkles bilaterally. Tongue protrudes midline. EOMI. Motor: There is no pronator drift. Cerebellar: Finger to nose is intact bilaterally. Skin: Warm and dry Internal Med - H&P Results - Labs CBC & Chem 7: 01/06/17 14:27 01/06/17 14:27 - VTE Documentation of Mechanical Device: Graduated compression elastic hosiery
[2017-01-07] MEDS ORDERED: Ondansetron ODT 4 MG TAB.RAPDIS SL PRN (11:11)
[2017-01-07] MEDS ORDERED: Acetaminophen 325 MG TABLET PO PRN (11:15)
[2017-01-07 13:01] LABS: Bilirubin,Urine Small (Negative); Blood,Urine Negative (Negative); Clarity,Urine Slightly Cloudy (Clear); Color,Urine Amber (Yellow); Glucose,Urine (UA) Normal (Normal); Ketones,Urine Negative (Negative); Leukocyte Esterase,Urine Negative (Negative); Nitrite,Urine Positive (Negative); Protein,Urine Trace mg/dL (Neg-Trace); Urobilinogen,Urine Normal (Normal)
[2017-01-07 13:41] LABS: RBC,Urine 0-3 per hpf (0-3)
[2017-01-07 13:42] LABS: Bacteria,Urine Moderate per hpf (None-Few); Mucus,Urine Few (Few); Squamous Epithelial Cell,Urine Few per lpf (None-Few)
[2017-01-07] MEDS ORDERED: traZODone 50 MG TABLET PO SCH (21:00)
[2017-01-08] MEDS: *HR* OxyCODONE/APAP 5/325 TABLET PO PRN ×2 (01:14→06:57)
[2017-01-08] MEDS: *HR* LORazepam 1 MG TABLET PO PRN (06:20)
[2017-01-08 06:41] VITALS: BP 134/83
--- NOTE | 2017-01-08 10:42 | Discharge Summary ---
Date of Encounter: 01/08/17 Time of Encounter: 10:30 - Discharge Diagnosis (1) Gastroenteritis Priority: Primary Status: Acute (2) Vitamin D deficiency Priority: Secondary Status: Acute (3) Anxiety Priority: Secondary Status: Chronic - Discharge Medications Prescriptions: ALPRAZolam [Xanax 0.25 MG Tablet] 0.25 mg PO TID PRN #15 tablet PRN Reason: Anxiety Home Medications: Acetaminophen [Tylenol] 325 mg PO Q6HR PRN #10 tablet 12/06/16 [Rx] Carvedilol 12.5 mg PO BID #60 tab 12/10/16 [Rx] Cholecalciferol (D-3) [Vitamin D] 5,000 unit PO DAILY #150 tablet 12/10/16 [Rx] Cyanocobalamin (B-12) [Vitamin B12] 1,000 mcg PO DAILY #30 tablet 12/10/16 [Rx] ALPRAZolam [Xanax 0.25 MG Tablet] 0.25 mg PO TID PRN #15 tablet 01/08/17 [Rx] Allergies/Adverse Reactions: Allergies codeine Allergy (Verified 12/07/16 12:45) Numbness Sulfa (Sulfonamide Antibiotics) Allergy (Verified 12/07/16 12:45) Hives Date of admission: 01/06/17 16:09 Primary care physician: PCP NO - Patient Status Disposition: Home, Self-Care Condition: Good Functional capacity at discharge: uses cane/walker Overall status at discharge: patient is progressing back to baseline - Discharge Instructions Follow Up With: NO,PCP [Primary Care Provider] - 1 week - Diet and Activity Activity: resume usual activities as tolerated Diet: advance to your usual diet Hospital course: Ms. Lopez is a 66 year old female who came to emergency room stating she had onset of vomiting January 05. She reports over 20 episodes of vomiting without visible hematemesis. She developed lower abdominal pain the morning of January 06 which she attributes to the repeated vomiting. She also reports feeling chilled and having diarrhea. She reports she had a panic attack the morning of January 06. She came to emergency room and was admitted to [facility] for ongoing care needs. Initial orders were written by the emergency room physician. I saw her on January 07 and performed the history and physical. She was given IV fluids initially with prn anti-emetics. She had no further vomiting after admission to [facility] floor. She was able to tolerate adequate amount of food and fluids without difficulty. She was given Ativan when necessary and had no further pain attacks. When I saw her on January 08 she felt stable for discharge home which I felt was reasonable. I will give her 15 pills of Xanax 0.25 mg for t.i.d. prn use. She stated she did not want to continue going to [facility] for her primary care needs. She will return to [facility] where she has been seen previously. She will see a PCP within one week. - Time Spent with Patient Total time spent providing and/or coordinating discharge services: - Constitutional Vitals: Temp Pulse Resp BP Pulse Ox 97.9 F 75 16 134/83 95 01/08/17 06:39 01/08/17 06:39 01/08/17 06:39 01/08/17 06:39 01/08/17 06:39 - VTE Documentation of Mechanical Device: Graduated compression elastic hosiery
== END 2017-01-08 11:48 | disposition home or self-care (01) ==
LOC: INPPIK 14:08 → EMEROOPIK 14:08 → INPPIK 17:35
PROVIDERS: ADMIT Internal Medicine; ATTEND Internal Medicine